=== PATIENT | male | born 1955 | race Caucasian/White ===

== ENCOUNTER 2016-11-01 14:01 | Inpatient (IN) | payer MEDICARE, MEDICAID ==
[2016-11-01] MEDS ORDERED: Albuterol/Ipratropium Neb 3 ML AERS HHN ONE ×2 (14:11→14:15)
--- NOTE | 2016-11-01 14:16 | ED Physician Chart ---
Chief Complaint/HPI - Patient Information Date Seen:: 11/01/16 Time Seen:: 14:11 Chief Complaint:: copd exacerbation History of Present Illness:: pt sent from [place] for chest tightness complaints. has hx of copd. seems to indicate that he has difficulty taking a deep breath...he is a difficult historian. he speaks legibly at some points but does a low of low mumbling which is difficult to decipher. he smokes about 6 cigs/day. says he has some chronic cough which is ?rarely prod of ? color sputum. he denies any leg pains or edema. no continuous cp. not currently sob. no arm/jaw apins. no edema. no known fever. he says he does not get any breathing txs at [place] .. Allergies:: Allergies Allergy/AdvReac Type Severity Reaction Status Date / Time No Known Allergies Allergy Verified 11/01/16 14:10 Historian:: Patient, EMS, Medical Records Review:: Transfer documents Reviewed Review of Systems - Review of Systems General/Constitutional: No fever, No chills, No weight loss, No weakness, No diaphoresis, No edema, No loss of appetite Skin: No skin lesions, No rash, No bruising Head: No headache, No light-headedness Eyes: No loss of vision, No pain, No diplopia ENT: No earache, No nasal drainage, No sore throat, No tinnitus Neck: No neck pain, No swelling, No thyromegaly, No stiffness, No mass noted Cardio Vascular: No chest pain, No palpitations, No PND, No orthopnea, No edema Pulmonary: SOB, Cough, Sputum, No wheezing GI: No nausea, No vomiting, No diarrhea, No pain, No melena, No hematochezia, No constipation, No hematemesis G/U: No dysuria, No frequency, No hematuria Musculoskeletal: No bone or joint pain, No back pain, No muscle pain Endocrine: No polyuria, No polydipsia Psychiatric: Prior psych history, No depression, No anxiety, No suicidal ideation Hematopoietic: No bruising, No lymphadenopathy Allergic/Immuno: No urticaria, No angioedema Neurological: No syncope, No focal symptoms, No weakness, No paresthesia, No headache, No seizure, No dizziness, No confusion, No vertigo Past Medical History - Past Medical History Past Medical History: Asthma/COPD Social History: Care Facility Psychiatricy History: Other Medication: Reviewed Family Medical History - Family Member Mother History Unknown: Yes Ethnicity: Unknown Living Status: Unknown Hx Family Cancer: (UNKNOWN) Hx Family Coronary Artery Disease: (UNKNOWN) Hx Family Congestive Heart Failure: (UNKNOWN) Hx Family Hypertension: (UNKNOWN) Hx Family Stroke: (UNKNOWN) Hx Family Diabetes: (UNKNOWN) Hx Family Seizures: (UNKNOWN) Hx Family Dementia: (UNKNOWN) Hx Family AIDS: (UNKNOWN) Hx Family COPD: (UNKNOWN) Hx Family Hepatitis: (UNKNOWN) Hx Family Psychiatric Problems: (UNKNOWN) Hx Family Tuberculosis: (UNKNOWN) Father History Unknown: Yes Ethnicity: Non- Living Status: Unknown Hx Family Cancer: (UNKNOWN PT CONFUSED) Hx Family Coronary Artery Disease: (UNKNOWN) Hx Family Congestive Heart Failure: (UNKNOWN) Hx Family Hypertension: (UNKNOWN) Hx Family Stroke: (UNKNOWN) Hx Family Diabetes: (UNKNOWN) Hx Family Seizures: (UNKNOWN) Hx Family Dementia: (UNKNOWN) Hx Family AIDS: (UNKNOWN) Hx Family COPD: (UNKNOWN) Hx Family Hepatitis: (UNKNOWN) Hx Family Psychiatric Problems: (UNKNOWN) Hx Family Tuberculosis: (UNKNOWN) Physical Exam - Physical Examination General/Constitutional: Awake, Well-developed, well-nourished, Alert, No distress, GCS 15, Non-toxic appearing, Ambulatory Other Gen/Cons comments:: thin male in nad. difficult to hear low volume mumbling speech at times. he does not seem winded w speaking. no leg edema. no denisse sx. Head: Atraumatic Eyes: Lids, conjuctiva normal, PERRL, EOMI Skin: Nl inspection, No rash, No skin lesions, No ecchymosis, Well hydrated, No lymphadenopathy ENMT: External ears, nose nl, Nasal exam nl, Lips, teeth, gums nl Neck: Nontender, Full ROM w/o pain, No JVD, No nuchal rigidity, No bruit, No mass, No stridor Respiratory: Nl effort/Exclusion, Clear to Auscultation Other Respiratory comments:: some rales at rt lung base posteriorly Cardio Vascular: RRR, No murmur, gallop, rubs, NL S1 S2 GI: No tenderness/rebounding/guarding, No organomegaly, No hernia, Normal BS's, Nondistended, No mass/bruits, No McBurney tenderness : No CVA tenderness Extremities: No tenderness or effusion, Full ROM, normal strength in all extremities, No edema, Normal digits & nails Neuro/Psych: Alert/oriented, DTR's symmetric, Normal sensory exam, Normal motor strength, Judgement/insight normal, Mood normal, Normal gait, No focal deficits Misc: normal gait, Normal back, No paraspinal tenderness Labs/Radiology/EKG Results - Lab Results Results: Laboratory Tests 11/01/16 11/01/16 11/01/16 14:40 14:40 14:40 WBC 9.9 D RBC 5.05 Hgb 16.0 Hct 45.7 MCV 90.4 MCH 31.6 H MCHC Differential 35.0 RDW 12.0 Plt Count 208 MPV 8.5 Neutrophils % 68.9 Lymphocytes % 23.8 Monocytes % 3.4 Eosinophils % 3.0 Basophils % 0.9 Sodium 138 Potassium 3.5 Chloride 107 Carbon Dioxide 25.7 Anion Gap 8.8 BUN 21 Creatinine 0.8 Est GFR ( Amer) > 60.0 Est GFR (Non-Af Amer) > 60.0 BUN/Creatinine Ratio 26.3 Glucose 126 H Whole Bld Lactic Acid Calcium 9.6 Total Bilirubin 0.3 AST 17 ALT 16 Alkaline Phosphatase 70 Troponin I 0.01 B-Natriuretic Peptide < 5.0 L Total Protein 6.8 Albumin 4.0 L Globulin 2.8 Albumin/Globulin Ratio 1.4 11/01/16 14:40 WBC RBC Hgb Hct MCV MCH MCHC Differential RDW Plt Count MPV Neutrophils % Lymphocytes % Monocytes % Eosinophils % Basophils % Sodium Potassium Chloride Carbon Dioxide Anion Gap BUN Creatinine Est GFR ( Amer) Est GFR (Non-Af Amer) BUN/Creatinine Ratio Glucose Whole Bld Lactic Acid 1.04 Calcium Total Bilirubin AST ALT Alkaline Phosphatase Troponin I B-Natriuretic Peptide Total Protein Albumin Globulin Albumin/Globulin Ratio - Radiology Results Results: cxr nad - EKG Interpretations EKG Time:: 14:15 Rate & Rhythm: nsr 86 [place]: 34 Intervals: nrml Comments:: overall wnl ecg. no ectopy. low voltage in III ED Septic Shock - . Is Septic Shock (SBP<90, OR Lactate>4 mmol\L) present?: No Reassessment (Disposition) - Reassessment Reassessment:: case dw dr florentino will admit for copd exacerbation. sao2 improved from 94-97 w yasmeen tx. pt alert and talking to self..sometimes w violent convictions but overall seems alert/stable..no shahida conflicts w staff in ed. Reassessment Condition:: Improved - Diagnosis Diagnosis:: copd exacerbation - Patient Disposition Admitted to:: Med/Surg Condition at Disposition:: Improved
[2016-11-01 14:57] LABS: % BASOPHILS 0.9 % (0.0-2.0); % LYMPHOCYTES 23.8 % (20.0-50.0); % MONOCYTES 3.4 % (2.0-10.0); % NEUTROPHILS 68.9 % (40.0-80.0); HEMATOCRIT 45.7 % (39.0-49.0); MEAN CELL VOLUME 90.4 fl (80-99); MEAN CORPUSCULAR HEMOGLOBIN 31.6 pg (26.0-30.0); MEAN PLATELET VOLUME 8.5 fl; NEUTROPHILE ABSOLUTE 6.8 Th/cmm (1.8-8.0); PLATELET COUNT 208 Th/cmm (150-400); RED BLOOD COUNT 5.05 Mil/cmm (4.30-5.70)
[2016-11-01 15:04] LABS: WHITE BLOOD COUNT 9.9 Th/cmm (4.8-10.8)
[2016-11-01 15:21] LABS: ALB/GLOB RATIO 1.4 (1.0-1.8); ALKALINE PHOSPHATASE 70 U/L (34-104); ANION GAP 8.8 (7.0-16.0); BILIRUBIN,TOTAL 0.3 mg/dL (0.3-1.0); BNP < 5.0 pg/mL (5.0-100.0); BUN - UREA NITROGEN 21 mg/dL (7-25); BUN/CREATININE RATIO 26.3; CALCIUM SERUM 9.6 mg/dL (8.6-10.3); CARBON DIOXIDE 25.7 mEq/L (21.0-31.0); CHLORIDE 107 mEq/L (98-107); CREATININE - SERUM 0.8 mg/dL (0.7-1.3); GLUCOSE 126 mg/dL (70-105); POTASSIUM SERUM 3.5 mEq/L (3.5-5.1); SGOT 17 U/L (13-39); SGPT/ALT 16 U/L (7-52); SODIUM SERUM 138 mEq/L (136-145)
[2016-11-01 15:24] LABS: TROP I 0.01 ng/mL (0.01-0.05)
[2016-11-01 16:36] VITALS: BP 125/85
[2016-11-01] MEDS ORDERED: Pneumococcal Vaccine 0.5 mL Vial IM ONE (19:42)
--- NOTE | 2016-11-01 21:52 | Admit Criteria Form ---
Admit Criteria Forms - Admit Criteria Diagnosis: COPD Clinical Indications for Admission to Inpatient Care (Place 'X' for any and all applicable criteria): Admission is indicated for ANY ONE of the following (1)(2)(3): [X]I. Acute exacerbation by high-risk comorbidity (e.g., pneumonia, dysrhythmia, heart failure, pleural effusion, pneumothorax) or severe underlying COPD (e.g., steroid dependent) [ ]II. Inpatient admission required rather than observation care (see Chronic Obstructive Pulmonary Disease: Observation Care) because of ANY ONE of the following: [ ]a) New or pre-existing signs or symptoms of COPD (eg, dyspnea or Tachypnea at rest or with minimal activity) that persist despite outpatient and observation care treatment [ ]b) New-onset hypoxemia (room air SaO2 less than 90%, PO2 less than 60 mm Hg (8.0 kPa)) that persists despite outpatient and observation care treatment [ ]c) Worsening of pre-existing hypoxemia (eg, new or increased requirement for supplemental oxygen to maintain oxygenation at baseline level) that persists despite outpatient and observation care treatment, with oxygen treatment needs performable only in acute inpatient setting [ ]d) Hypercarbia (PCO2 greater than 40 mm Hg (5.3 kPa))-induced respiratory acidosis (pH less than 7.35) that persists despite outpatient and observation care treatment [ ]e) Supplemental oxygen or respiratory treatments for over 24 hours that are performable only in acute inpatient setting [ ]f) Chest tube placement with active evacuation (e.g., suction, drainage) (5) [ ]g) Other condition, treatment or monitoring requiring inpatient admission [ ]III. Planned invasive surgical or diagnostic procedures requiring acute- care hospitalization [ ]IV. Acute respiratory failure (e.g., uncompensated hypercarbia, severe hypoxemia) [ ]V. Severe comorbid condition (e.g., severe steroid myopathy, acute vertebral fracture) that has acutely worsened pulmonary function [ ]. Confusion state, lethargy, obtundation, stupor or coma Extended stay beyond goal length of stay may be needed for (31)(32): [ ]a ) Respiratory Failure. [ ]b) Severe or persisting hypoxemia or hypercarbia [ ]c) Severe or persistent dyspnea [ ]d) Comorbidities (e.g. chronic heart failure, atrial fibrillation with rapid response, pneumonia) [ ]e) Malnutrition The original [facility] content created by [facility] has been revised. The portions of the content which have been revised are identified through the use of italic text or in bold, and [facility] has neither reviewed nor approved the modified material. All other unmodified content is copyright [facility]. Please see references footnoted in the original [facility] edition 2016 Admit Criteria Met?: Yes
[2016-11-01] MEDS ORDERED: Maalox 30 mL Cup PO PRN ×2 (22:28→22:29)
[2016-11-01] MEDS ORDERED: Magnesium Hydroxide (MOM) 30 mL UDC PO PRN (22:28)
[2016-11-01] MEDS ORDERED: guaiFENesin 200 MG/10 ML UDC PO PRN (22:29)
[2016-11-01] MEDS ORDERED: Hydrocodone/APAP 5mg/325mg Tab PO PRN (22:29)
[2016-11-01] MEDS: D5-0.45NS 1,000 ML IV SCH (23:13)
[2016-11-01] MEDS: Levofloxacin 500mg/100mL 500 MG/100 ML BAG IV SCH (23:19)
[2016-11-02] MEDS: methylPREDNISolone SS 40 mg Vial IVP SCH ×3 (06:07→23:05)
[2016-11-02] MEDS: Albuterol Nebulizer 2.5mg/3mL HHN SCH ×4 (09:16→19:28)
[2016-11-02] MEDS: Ipratropium Neb 0.5 mg/2.5 mL UD HHN SCH ×4 (09:16→19:28)
[2016-11-02] MEDS: Multivitamin Tab PO SCH (09:46)
--- NOTE | 2016-11-02 10:58 | Diagnostic Imaging Report ---
Portable chest x-ray History: Shortness of breath Allowing for portable technique the heart size is normal. No focal pulmonary parenchymal processes. No hilar or mediastinal abnormalities. Impression: No acute abnormalities.
[2016-11-02] MEDS: D5-0.45NS 1,000 ML IV SCH (14:22)
[2016-11-02] MEDS: Levofloxacin 500mg/100mL 500 MG/100 ML BAG IV SCH (23:07)
[2016-11-03] MEDS: Ipratropium Neb 0.5 mg/2.5 mL UD HHN SCH ×4 (06:50→18:54)
[2016-11-03] MEDS: Albuterol Nebulizer 2.5mg/3mL HHN SCH ×4 (06:50→18:53)
[2016-11-03] MEDS: D5-0.45NS 1,000 ML IV SCH ×2 (07:28→08:55)
[2016-11-03] MEDS: methylPREDNISolone SS 40 mg Vial IVP SCH ×3 (07:36→22:50)
[2016-11-03] MEDS: Multivitamin Tab PO SCH (08:52)
--- NOTE | 2016-11-03 09:52 | Diagnostic Imaging Report ---
CHEST X-RAY: AP view INDICATION: COPD COMPARISON: Chest x-ray 11/01/2016 FINDINGS: Suboptimal lung volumes are seen with bronchovascular crowding and bibasal atelectasis. No focal consolidation or effusions. Heart size is normal. Osseous structures are intact. IMPRESSION: Suboptimal lung volume with bronchovascular crowding and bibasal atelectasis. No focal consolidation identified.
--- NOTE | 2016-11-03 09:55 | History & Physical ---
ADMIT DATE: 11/02/2016 CHIEF COMPLAINT: Increasing shortness of breath and coughing. HISTORY OF PRESENT ILLNESS: This is a 61-year-old male with history of COPD, dementia, schizoaffective disorder, hypercholesterolemia, was admitted from nursing facility secondary to above complaints. The patient was brought into the ER and noted to have abnormal EKG as well. The patient was admitted for further management. PAST MEDICAL HISTORY: As mentioned in history of present illness. PAST SURGICAL HISTORY: Denies any surgeries in the past. ALLERGIES: No known drug allergies. MEDICATIONS: Tylenol, multivitamins, ____, Zyprexa, simvastatin, ____. FAMILY HISTORY: Noncontributory. SOCIAL HISTORY: The patient is an avid smoker. ____. The patient is in a nursing facility ____. REVIEW OF SYSTEMS: GENERAL: Complains not feeling well. HEENT: No blurred vision or pain. LUNGS: The patient with diagnosed COPD. The patient is a chronic smoker. HEART: ____. ABDOMEN: No nausea, vomiting, or pain. GENITOURINARY: The patient denies increased frequency or dysuria. NEUROLOGIC: No headache, seizure, or syncope. PSYCHIATRIC: Stable. PHYSICAL EXAMINATION: VITAL SIGNS: Blood pressure 104/66, respirations 18, pulse ____. GENERAL: Elderly male, appears stated age. NECK: Supple. No mass. LUNGS: ____. HEART: Regular rate and rhythm without appreciable murmurs. ABDOMEN: Soft, nontender. EXTREMITIES: No clubbing, cyanosis or edema, with positive excoriation in the right lower extremity. LABORATORY DATA: WBC 9.9, hemoglobin 16, platelets 208. Sodium ____ blood sugar 126. Albumin 4.0. ASSESSMENT AND PLAN: Acute chronic obstructive pulmonary disease exacerbation, acute bronchitis, dementia, hyperglycemia, hypercholesterolemia, schizoaffective disorder. We will continue the patient ____ steroids. We will review the patient's ____. We will continue to follow the patient closely. JOB# [id number]
--- NOTE | 2016-11-03 15:26 | Internal Medicine Prog Note ---
Internal Medicine Subjective - Subjective Patient seen and examined:: with staff, chart reviewed Patient is:: awake, verbal, interactive Patient Complaints of:: congestion Per staff patient is:: no adverse event, no episodes of fall, poor appetite, confused Internal Medicine Objective - Results Result Diagrams: 11/01/16 14:40 11/01/16 14:40 Recent Labs: Laboratory Last Values WBC 9.9 Th/cmm (4.8-10.8) D 11/01/16 14:40 RBC 5.05 Mil/cmm (4.30-5.70) 11/01/16 14:40 Hgb 16.0 gm/dL (13.2-17.3) 11/01/16 14:40 Hct 45.7 % (39.0-49.0) 11/01/16 14:40 MCV 90.4 fl (80-99) 11/01/16 14:40 MCH 31.6 pg (26.0-30.0) H 11/01/16 14:40 MCHC Differential 35.0 pg (28.0-36.0) 11/01/16 14:40 RDW 12.0 % (11.5-20.0) 11/01/16 14:40 Plt Count 208 Th/cmm (150-400) 11/01/16 14:40 MPV 8.5 fl 11/01/16 14:40 Neutrophils % 68.9 % (40.0-80.0) 11/01/16 14:40 Lymphocytes % 23.8 % (20.0-50.0) 11/01/16 14:40 Monocytes % 3.4 % (2.0-10.0) 11/01/16 14:40 Eosinophils % 3.0 % (0.0-5.0) 11/01/16 14:40 Basophils % 0.9 % (0.0-2.0) 11/01/16 14:40 Sodium 138 mEq/L (136-145) 11/01/16 14:40 Potassium 3.5 mEq/L (3.5-5.1) 11/01/16 14:40 Chloride 107 mEq/L (98-107) 11/01/16 14:40 Carbon Dioxide 25.7 mEq/L (21.0-31.0) 11/01/16 14:40 Anion Gap 8.8 (7.0-16.0) 11/01/16 14:40 BUN 21 mg/dL (7-25) 11/01/16 14:40 Creatinine 0.8 mg/dL (0.7-1.3) 11/01/16 14:40 Est GFR ( Amer) > 60.0 ml/min (>90) 11/01/16 14:40 Est GFR (Non-Af Amer) > 60.0 ml/min 11/01/16 14:40 BUN/Creatinine Ratio 26.3 11/01/16 14:40 Glucose 126 mg/dL (70-105) H 11/01/16 14:40 Whole Bld Lactic Acid 1.04 mmol/L (0.60-1.99) 11/01/16 14:40 Calcium 9.6 mg/dL (8.6-10.3) 11/01/16 14:40 Total Bilirubin 0.3 mg/dL (0.3-1.0) 11/01/16 14:40 AST 17 U/L (13-39) 11/01/16 14:40 ALT 16 U/L (7-52) 11/01/16 14:40 Alkaline Phosphatase 70 U/L (34-104) 11/01/16 14:40 Troponin I 0.01 ng/mL (0.01-0.05) 11/01/16 14:40 B-Natriuretic Peptide < 5.0 pg/mL (5.0-100.0) L 11/01/16 14:40 Total Protein 6.8 gm/dL (6.0-8.3) 11/01/16 14:40 Albumin 4.0 gm/dL (4.2-5.5) L 11/01/16 14:40 Globulin 2.8 gm/dL 11/01/16 14:40 Albumin/Globulin Ratio 1.4 (1.0-1.8) 11/01/16 14:40 - Physical Exam Vitals and I&O: Vital Signs Temp 98.2 F 11/03/16 04:00 Pulse 92 11/03/16 10:52 Resp 18 11/03/16 10:52 BP 125/80 11/03/16 04:00 Pulse Ox 96 11/03/16 10:52 Intake & Output 11/02/16 11/03/16 11/03/16 18:59 06:59 18:59 Intake Total 1000 1150 Balance 1000 1150 Intake: Intake, IV Amount 1000 1000 D5-0.45NS 1,000 ml @ 70 1000 1000 mls/hr IV .[id number] [facility] Rx #:[id number] Oral 150 Other: # Voids 2 # Bowel Movements 0 Active Medications: Current Medications Acetaminophen (Tylenol) 650 mg PO Q4HR PRN PRN Reason: PAIN OR TEMP >100.5 Stop: 12/31/16 22:27 Acetaminophen/Hydrocodone Bitart ([place] 5mg/325mg) 1 tab PO Q4H PRN PRN Reason: Pain (Severe) Stop: 12/31/16 22:28 Al Hydrox/Mg Hydrox/Simethicone (Maalox) 30 ml PO Q4H PRN PRN Reason: GI DISTRESS Stop: 12/31/16 22:27 Albuterol Sulfate (Albuterol 2.5mg/3ml Neb Ud) 2.5 mg HHN QIDRT [facility] Stop: 01/01/17 06:59 Last Admin: 11/03/16 10:52 Dose: Not Given Buspirone HCl (Buspar) 7.5 mg PO BID [facility] PRN Reason: Protocol Stop: 01/01/17 08:59 Last Admin: 11/03/16 08:52 Dose: 7.5 mg Guaifenesin (Robitussin) 200 mg PO Q4HR PRN PRN Reason: Cough or Congestion Stop: 12/31/16 22:28 Heparin Sodium (Porcine) (Heparin) 5,000 units SUBQ Q12HR [facility] Stop: 01/01/17 08:59 Last Admin: 11/03/16 08:52 Dose: 5,000 units Hydroxyzine HCl (Atarax) 25 mg PO QID PRN; Protocol PRN Reason: itching Stop: 12/31/16 22:27 Dextrose/Sodium Chloride (D5-0.45ns) 1,000 mls @ 70 mls/hr IV .[id number] [facility] Stop: 12/31/16 22:29 Last Admin: 11/03/16 08:55 Dose: 70 mls/hr Levofloxacin (Levaquin Pb) 500 mg in 100 mls @ 100 mls/hr IV Q24HR [facility] Stop: 12/31/16 22:29 Last Admin: 11/02/16 23:07 Dose: 100 mls/hr Ipratropium [place] (Atrovent Neb 0.5mg/2.5ml) 0.5 mg HHN QIDRT [facility] Stop: 01/01/17 06:59 Last Admin: 11/03/16 10:52 Dose: Not Given Magnesium Hydroxide (Milk Of Magnesia) 30 ml PO HS PRN PRN Reason: Constipation Stop: 12/31/16 22:27 Methylprednisolone Sodium Succinate (Solu-Medrol) 80 mg IVP Q8HR [facility] Stop: 01/01/17 04:59 Last Admin: 11/03/16 14:28 Dose: 80 mg Multivitamins/Vitamin C (Theragran) 1 tab PO DAILY G[facility] Stop: 01/01/17 08:59 Last Admin: 11/03/16 08:52 Dose: 1 tab Olanzapine (Zyprexa) 5 mg PO TID [facility] PRN Reason: Protocol Stop: 01/01/17 08:59 Last Admin: 11/03/16 14:28 Dose: 5 mg Ondansetron HCl (Zofran) 4 mg IV Q8H PRN PRN Reason: Nausea / Vomiting Stop: 12/31/16 22:28 Simvastatin (Zocor) 10 mg PO HS G[facility] PRN Reason: Protocol Stop: 01/01/17 20:59 Last Admin: 11/02/16 23:06 Dose: 10 mg Zolpidem Tartrate (Ambien) 5 mg PO HS PRN PRN Reason: Insomnia Stop: 12/31/16 22:27 Last Admin: 11/02/16 23:06 Dose: 5 mg General: demented HEENT: NC/AT, PERRLA Neck: Supple, No JVD Lungs: congested, rales Cardiovascular: RRR, Normal S1, Normal S2 Abdomen: soft non-tender, globular Extremities: excoriation, contracture Neurological: no change - Procedures Procedures: Procedures Procedure Code Date OTHER GROUP THERAPY 94.44 03/09/15 RECREATIONAL THERAPY 93.81 03/19/12 Internal Medicine Assmt/Plan - Assessment Assessment: Acute chronic obstructive pulmonary disease exacerbation, acute bronchitis, dementia, hyperglycemia, hypercholesterolemia, schizoaffective disorder. - Plan Plan: cont on iv abx o2 bronchodilator psych follow up khushi vasquez
[2016-11-03] MEDS: Levofloxacin 500mg/100mL 500 MG/100 ML BAG IV SCH (23:06)
[2016-11-04] MEDS: D5-0.45NS 1,000 ML IV SCH ×2 (06:04→20:57)
[2016-11-04] MEDS ORDERED: methylPREDNISolone SS 40 mg Vial ONE (06:16)
[2016-11-04] MEDS: methylPREDNISolone SS 40 mg Vial IVP SCH ×2 (06:28→20:56)
[2016-11-04] MEDS: Ipratropium Neb 0.5 mg/2.5 mL UD HHN SCH ×4 (06:47→18:45)
[2016-11-04] MEDS: Albuterol Nebulizer 2.5mg/3mL HHN SCH ×4 (06:47→18:45)
[2016-11-04 07:28] LABS: ANION GAP 11.3 (7.0-16.0); BUN - UREA NITROGEN 20 mg/dL (7-25); BUN/CREATININE RATIO 28.6; CALCIUM SERUM 9.4 mg/dL (8.6-10.3); CARBON DIOXIDE 22.5 mEq/L (21.0-31.0); CHLORIDE 110 mEq/L (98-107); CREATININE - SERUM 0.7 mg/dL (0.7-1.3); GLUCOSE 121 mg/dL (70-105); POTASSIUM SERUM 3.8 mEq/L (3.5-5.1); SODIUM SERUM 140 mEq/L (136-145)
[2016-11-04 07:33] LABS: HEMATOCRIT 44.1 % (39.0-49.0); HEMOGLOBIN 15.1 gm/dL (13.2-17.3); MEAN CELL VOLUME 92.6 fl (80-99); MEAN CORPUSCULAR HEMOGLOBIN 31.8 pg (26.0-30.0); MEAN CORPUSCULAR HGB CONC 34.3 pg (28.0-36.0); MEAN PLATELET VOLUME 8.8 fl; PLATELET COUNT 222 Th/cmm (150-400); RED BLOOD COUNT 4.76 Mil/cmm (4.30-5.70); RED CELL DISTRIBUTION WIDTH 12.2 % (11.5-20.0)
[2016-11-04 07:41] LABS: WHITE BLOOD COUNT 19.9 Th/cmm (4.8-10.8)
[2016-11-04 08:44] LABS: BAND NEUTROPHILE 1 % (0-10); NEUTROPHILS 97 % (40-80); PLATELET ESTIMATE ADEQUATE (NORMAL); TOTAL CELLS COUNTED 100
--- NOTE | 2016-11-04 09:34 | Consultation ---
DATE OF CONSULTATION: 11/03/2016 PSYCHIATRIC CONSULTATION: The patient was seen, chart reviewed, and discussed with staff. HISTORY OF PRESENT ILLNESS: The patient is a 61-year-old male with chronic history of schizophrenia, known to myself from prior treatment. He has been somewhat restless at times, pacing on medical floor. The patient is talking to himself; however, he has not been aggressive or striking out. The patient has been taking his medications and passively accepting treatments. PAST PSYCHIATRIC HISTORY: Multiple psychiatric hospitalizations, history of chronic mental illness. PAST MEDICAL HISTORY: COPD and acute bronchitis. Refer to [facility] and P. PSYCHOSOCIAL HISTORY: The patient resides at [facility] and requires complete care. MENTAL STATUS EXAMINATION: The patient is slightly disheveled, makes fair eye contact. He was superficial, smiling. The patient is responding to internal stimuli, actively hallucinating. He is oriented to person and being in the hospital. Not oriented to time, no suicidal thoughts. ASSESSMENT: Schizophrenia versus schizoaffective disorder. PLAN: We will continue BuSpar 7.5 mg p.o. b.i.d., olanzapine 5 mg p.o. t.i.d., use Ativan 0.5 mg p.o. q.4 hours p.r.n. anxiety. Consider psychiatric hospitalization once medically stable given the patient has been hallucinating and to monitor closely for the time being. Thank you for the consultation. JOB# [id number]
[2016-11-04] MEDS: Multivitamin Tab PO SCH (10:03)
--- NOTE | 2016-11-04 13:18 | Internal Medicine Prog Note ---
Internal Medicine Subjective - Subjective Patient seen and examined:: with staff, chart reviewed Patient is:: awake, verbal, interactive Patient Complaints of:: congestion Per staff patient is:: no adverse event, no episodes of fall, confused Internal Medicine Objective - Results Result Diagrams: 11/04/16 06:00 11/04/16 06:00 Recent Labs: Laboratory Last Values WBC 19.9 Th/cmm (4.8-10.8) H D 11/04/16 06:00 RBC 4.76 Mil/cmm (4.30-5.70) 11/04/16 06:00 Hgb 15.1 gm/dL (13.2-17.3) 11/04/16 06:00 Hct 44.1 % (39.0-49.0) 11/04/16 06:00 MCV 92.6 fl (80-99) 11/04/16 06:00 MCH 31.8 pg (26.0-30.0) H 11/04/16 06:00 MCHC Differential 34.3 pg (28.0-36.0) 11/04/16 06:00 RDW 12.2 % (11.5-20.0) 11/04/16 06:00 Plt Count 222 Th/cmm (150-400) 11/04/16 06:00 MPV 8.8 fl 11/04/16 06:00 Neutrophils % 68.9 % (40.0-80.0) 11/01/16 14:40 Band Neutrophils % 1 % (0-10) 11/04/16 06:00 Lymphocytes % 23.8 % (20.0-50.0) 11/01/16 14:40 Monocytes % 3.4 % (2.0-10.0) 11/01/16 14:40 Eosinophils % 3.0 % (0.0-5.0) 11/01/16 14:40 Basophils % 0.9 % (0.0-2.0) 11/01/16 14:40 Neutrophils (Manual) 97 % (40-80) H 11/04/16 06:00 Lymphocytes 2 % (20-50) L 11/04/16 06:00 Platelet Estimate ADEQUATE (NORMAL) 11/04/16 06:00 Sodium 140 mEq/L (136-145) 11/04/16 06:00 Potassium 3.8 mEq/L (3.5-5.1) 11/04/16 06:00 Chloride 110 mEq/L (98-107) H 11/04/16 06:00 Carbon Dioxide 22.5 mEq/L (21.0-31.0) 11/04/16 06:00 Anion Gap 11.3 (7.0-16.0) 11/04/16 06:00 BUN 20 mg/dL (7-25) 11/04/16 06:00 Creatinine 0.7 mg/dL (0.7-1.3) 11/04/16 06:00 Est GFR ( Amer) > 60.0 ml/min (>90) 11/04/16 06:00 Est GFR (Non-Af Amer) > 60.0 ml/min 11/04/16 06:00 BUN/Creatinine Ratio 28.6 11/04/16 06:00 Glucose 121 mg/dL (70-105) H 11/04/16 06:00 Whole Bld Lactic Acid 1.04 mmol/L (0.60-1.99) 11/01/16 14:40 Calcium 9.4 mg/dL (8.6-10.3) 11/04/16 06:00 Total Bilirubin 0.3 mg/dL (0.3-1.0) 11/01/16 14:40 AST 17 U/L (13-39) 11/01/16 14:40 ALT 16 U/L (7-52) 11/01/16 14:40 Alkaline Phosphatase 70 U/L (34-104) 11/01/16 14:40 Troponin I 0.01 ng/mL (0.01-0.05) 11/01/16 14:40 B-Natriuretic Peptide < 5.0 pg/mL (5.0-100.0) L 11/01/16 14:40 Total Protein 6.8 gm/dL (6.0-8.3) 11/01/16 14:40 Albumin 4.0 gm/dL (4.2-5.5) L 11/01/16 14:40 Globulin 2.8 gm/dL 11/01/16 14:40 Albumin/Globulin Ratio 1.4 (1.0-1.8) 11/01/16 14:40 - Physical Exam Vitals and I&O: Vital Signs Temp 97.8 F 11/04/16 11:32 Pulse 103 11/04/16 11:32 Resp 19 11/04/16 11:32 BP 100/67 11/04/16 11:32 Pulse Ox 98 11/04/16 11:32 Intake & Output 11/03/16 11/04/16 11/04/16 18:59 06:59 18:59 Intake Total 571.667 428.333 Balance 571.667 428.333 Intake: Intake, IV Amount 571.667 428.333 D5-0.45NS 1,000 ml @ 70 571.667 428.333 mls/hr IV .[id number] [facility] Rx #:[id number] Active Medications: Current Medications Acetaminophen (Tylenol) 650 mg PO Q4HR PRN PRN Reason: PAIN OR TEMP >100.5 Stop: 12/31/16 22:27 Acetaminophen/Hydrocodone Bitart ([place] 5mg/325mg) 1 tab PO Q4H PRN PRN Reason: Pain (Severe) Stop: 12/31/16 22:28 Al Hydrox/Mg Hydrox/Simethicone (Maalox) 30 ml PO Q4H PRN PRN Reason: GI DISTRESS Stop: 12/31/16 22:27 Albuterol Sulfate (Albuterol 2.5mg/3ml Neb Ud) 2.5 mg HHN QIDRT [facility] Stop: 01/01/17 06:59 Last Admin: 11/04/16 10:35 Dose: 2.5 mg Buspirone HCl (Buspar) 7.5 mg PO BID [facility] PRN Reason: Protocol Stop: 01/01/17 08:59 Last Admin: 11/04/16 10:02 Dose: 7.5 mg Guaifenesin (Robitussin) 200 mg PO Q4HR PRN PRN Reason: Cough or Congestion Stop: 12/31/16 22:28 Heparin Sodium (Porcine) (Heparin) 5,000 units SUBQ Q12HR [facility] Stop: 01/01/17 08:59 Last Admin: 11/04/16 10:04 Dose: 5,000 units Hydroxyzine HCl (Atarax) 25 mg PO QID PRN; Protocol PRN Reason: itching Stop: 12/31/16 22:27 Dextrose/Sodium Chloride (D5-0.45ns) 1,000 mls @ 70 mls/hr IV .[id number] [facility] Stop: 12/31/16 22:29 Last Admin: 11/04/16 06:04 Dose: 70 mls/hr Levofloxacin (Levaquin Pb) 500 mg in 100 mls @ 100 mls/hr IV Q24HR [facility] Stop: 12/31/16 22:29 Last Admin: 11/03/16 23:06 Dose: 100 mls/hr Ipratropium [place] (Atrovent Neb 0.5mg/2.5ml) 0.5 mg HHN QIDRT [facility] Stop: 01/01/17 06:59 Last Admin: 11/04/16 10:35 Dose: 0.5 mg Lorazepam (Ativan) 0.5 mg PO Q4HR PRN; Protocol PRN Reason: Anxiety Stop: 01/02/17 18:21 Magnesium Hydroxide (Milk Of Magnesia) 30 ml PO HS PRN PRN Reason: Constipation Stop: 12/31/16 22:27 Methylprednisolone Sodium Succinate (Solu-Medrol) 80 mg IVP Q8HR [facility] Stop: 01/01/17 04:59 Last Admin: 11/04/16 06:28 Dose: 80 mg Multivitamins/Vitamin C (Theragran) 1 tab PO DAILY [facility] Stop: 01/01/17 08:59 Last Admin: 11/04/16 10:03 Dose: 1 tab Olanzapine (Zyprexa) 5 mg PO TID [facility] PRN Reason: Protocol Stop: 01/01/17 08:59 Last Admin: 11/04/16 10:03 Dose: 5 mg Ondansetron HCl (Zofran) 4 mg IV Q8H PRN PRN Reason: Nausea / Vomiting Stop: 12/31/16 22:28 Simvastatin (Zocor) 10 mg PO HS [facility] PRN Reason: Protocol Stop: 01/01/17 20:59 Last Admin: 11/03/16 21:52 Dose: 10 mg Zolpidem Tartrate (Ambien) 5 mg PO HS PRN PRN Reason: Insomnia Stop: 12/31/16 22:27 Last Admin: 11/03/16 21:52 Dose: 5 mg General: demented HEENT: NC/AT, PERRLA Neck: Supple, No JVD Lungs: congested, rales, ronchi Cardiovascular: RRR, Normal S1, Normal S2 Abdomen: soft non-tender, globular, positive bowel sound Extremities: excoriation Neurological: no change, disorganized - Procedures Procedures: Procedures Procedure Code Date OTHER GROUP THERAPY 94.44 03/09/15 RECREATIONAL THERAPY 93.81 03/19/12 Internal Medicine Assmt/Plan - Assessment Assessment: Acute chronic obstructive pulmonary disease exacerbation, acute bronchitis, dementia, hyperglycemia, hypercholesterolemia, schizoaffective disorder. leulocytosis - Plan Plan: cont on iv abx o2 bronchodilator psych follow up dw rn monitor wbc
[2016-11-04] MEDS: Levofloxacin 500mg/100mL 500 MG/100 ML BAG IV SCH (23:07)
[2016-11-05 06:12] LABS: % BASOPHILS 0.1 % (0.0-2.0); % EOSINOPHILS 0.1 % (0.0-5.0); % LYMPHOCYTES 9.5 % (20.0-50.0); % MONOCYTES 1.9 % (2.0-10.0); % NEUTROPHILS 88.4 % (40.0-80.0); HEMOGLOBIN 14.1 gm/dL (13.2-17.3); MEAN CELL VOLUME 91.5 fl (80-99); MEAN CORPUSCULAR HEMOGLOBIN 31.6 pg (26.0-30.0); MEAN CORPUSCULAR HGB CONC 34.5 pg (28.0-36.0); MEAN PLATELET VOLUME 8.6 fl; NEUTROPHILE ABSOLUTE 10.8 Th/cmm (1.8-8.0); PLATELET COUNT 196 Th/cmm (150-400); RED BLOOD COUNT 4.48 Mil/cmm (4.30-5.70); RED CELL DISTRIBUTION WIDTH 12.3 % (11.5-20.0)
[2016-11-05 06:24] LABS: WHITE BLOOD COUNT 12.2 Th/cmm (4.8-10.8)
[2016-11-05] MEDS: Albuterol Nebulizer 2.5mg/3mL HHN SCH ×3 (06:50→14:45)
[2016-11-05] MEDS: Ipratropium Neb 0.5 mg/2.5 mL UD HHN SCH ×3 (06:50→14:45)
[2016-11-05] MEDS: Multivitamin Tab PO SCH (08:38)
[2016-11-05] MEDS: methylPREDNISolone SS 40 mg Vial IVP SCH (08:38)
[2016-11-05] MEDS: D5-0.45NS 1,000 ML IV SCH (13:36)
--- NOTE | 2016-11-06 00:13 | Discharge Summary ---
DATE OF DISCHARGE: 11/05/2016 CHIEF COMPLAINT: Increasing shortness of breath and coughing. FINAL DIAGNOSES: 1. Acute chronic obstructive pulmonary disease exacerbation. 2. Leukocytosis, which is improving. 3. Acute bronchitis. 4. Dementia. 5. Hyperglycemia. 6. Hypercholesterolemia. 7. Schizoaffective disorder. HISTORY OF PRESENT ILLNESS: This is a 61-year-old male with history of COPD, dementia, schizoaffective disorder, hypercholesterolemia, was admitted from nursing facility secondary to above complaints. The patient was admitted for COPD exacerbation. PHYSICAL EXAMINATION: VITAL SIGNS: Blood pressure ____, respirations 20, pulse 79, temperature 98.7. GENERAL: Elderly male, who appears his stated age. NECK: Supple. No mass. LUNGS: Equal breath sounds with few rhonchi. HEART: Regular rate and rhythm without appreciable murmurs. ABDOMEN: Soft, nontender. EXTREMITIES: Positive excoriations. HOSPITAL COURSE: The patient was admitted to medical floor, continued on IV hydration and IV antibiotic, given IV Solu-Medrol. The patient was seen by Dr. Martinez for adjustment of psychotropic medications. The patient's white count increased to 19,000 and steroids were adjusted and this improved to 12.2. The patient cleared for discharge. CONDITION ON DISCHARGE: Fair. DISCHARGE INSTRUCTIONS: The patient is to continue current medical regimen. The patient ____ antibiotics and steroids. [facility]# [id number]
== END 2016-11-05 18:45 | DRG 872 ==
LOC: ER 14:01 → MSI 16:39
PROVIDERS: ADMIT Internal Medicine; ATTEND Internal Medicine
DX: A41.9 Sepsis, unspecified organism (principal); J44.0 Chronic obstructive pulmonary disease with (acute) lower respiratory infection; F03.90 Unspecified dementia, unspecified severity, without behavioral disturbance, psychotic disturbance, mood disturbance, and anxiety; J44.1 Chronic obstructive pulmonary disease with (acute) exacerbation; F25.9 Schizoaffective disorder, unspecified; J20.9 Acute bronchitis, unspecified; R73.9 Hyperglycemia, unspecified; E78.5 Hyperlipidemia, unspecified; F17.210 Nicotine dependence, cigarettes, uncomplicated; E78.00 Pure hypercholesterolemia, unspecified
CPT/HCPCS: 36415-UA; 71010-TC; 80048-TC; 80053-TC; 83605; 83880-TC; 84484-TC; 85007-TC; 85025-TC; 85027-TC; 90779; 93005; 94640; 94760; J1644; J1956; J2920; J7051; J7613; Z7610

== ENCOUNTER 2017-11-26 18:12 | Emergency (ER) | payer MEDICAID, MEDICARE ==
--- NOTE | 2017-11-26 18:28 | ED Physician Chart ---
ED Chief Complaint/HPI - Patient Information Date Seen:: 11/26/17 Time Seen:: 18:10 Chief Complaint:: Agitation History of Present Illness:: onset x 3 days of agitation and hostile behavior; no report of trauma, H/As, S/T , neck pain, C/P, SOB, Abd. Pain, A/N/V/D/C, fever, chills, or urinary s/s Allergies:: Allergies Allergy/AdvReac Type Severity Reaction Status Date / Time No Known Allergies Allergy Verified 11/01/16 14:10 Historian:: Patient, EMS Review:: Nurse's Note Reviewed, Old Chart Reviewed, EMS run form Reviewed <Zaki Lindsey - Last Filed: 11/26/17 18:51> - Patient Information Allergies:: Allergies Allergy/AdvReac Type Severity Reaction Status Date / Time No Known Allergies Allergy Verified 11/01/16 14:10 Vitals:: Vital Signs - 8 hr 11/26/17 11/26/17 18:24 18:38 Temp 97.3 F HR 76 71 RR 18 20 BP 125/81 115/73 O2 Sat % 98 97 <Cosmo Devlin - Last Filed: 11/26/17 19:42> ED Review of Systems - Review of Systems General/Constitutional: No fever, No chills, No weight loss, No weakness, No diaphoresis, No edema, No loss of appetite Skin: No skin lesions, No rash, No bruising Head: No headache, No light-headedness Eyes: No loss of vision, No pain, No diplopia ENT: No earache, No nasal drainage, No sore throat, No tinnitus Neck: No neck pain, No swelling, No thyromegaly, No stiffness, No mass noted Cardio Vascular: No chest pain, No palpitations, No PND, No orthopnea, No edema Pulmonary: No SOB, No cough, No sputum, No wheezing GI: No nausea, No vomiting, No diarrhea, No pain, No melena, No hematochezia, No constipation, No hematemesis G/U: No dysuria, No frequency, No hematuria, No nacturia Musculoskeletal: No bone or joint pain, No back pain, No muscle pain Endocrine: No polyuria, No polydipsia Psychiatric: Prior psych history, Depression, Anxiety, No suicidal ideation, No homicidal ideation, No auditory hallucination, No visual hallucination Hematopoietic: No bruising, No lymphadenopathy Allergic/Immuno: No urticaria, No angioedema Neurological: No syncope, No focal symptoms, No weakness, No paresthesia, No headache, No seizure, No dizziness, Confusion, No vertigo <Zaki Lindsey - Last Filed: 11/26/17 18:51> ED Past Medical History - Past Medical History Obtainable: Yes Past Medical History: HTN, Dyslipidemia Family History: HTN Social History: Non Smoker, No Alcohol, No Drug Use, Single, Care Facility Surgical History: None Psychiatricy History: Depression, Bipolar Medication: Reviewed <Zaki Lindsey Last Filed: 11/26/17 18:51> Family Medical History - Family Member Mother History Unknown: Yes Ethnicity: Unknown Living Status: Unknown Hx Family Cancer: (UNKNOWN) Hx Family Coronary Artery Disease: (UNKNOWN) Hx Family Congestive Heart Failure: (UNKNOWN) Hx Family Hypertension: (UNKNOWN) Hx Family Stroke: (UNKNOWN) Hx Family Diabetes: (UNKNOWN) Hx Family Seizures: (UNKNOWN) Hx Family Dementia: (UNKNOWN) Hx Family AIDS: (UNKNOWN) Hx Family COPD: (UNKNOWN) Hx Family Hepatitis: (UNKNOWN) Hx Family Psychiatric Problems: (UNKNOWN) Hx Family Tuberculosis: (UNKNOWN) Father History Unknown: Yes Ethnicity: Non- Living Status: Unknown Hx Family Cancer: (UNKNOWN PT CONFUSED) Hx Family Coronary Artery Disease: (UNKNOWN) Hx Family Congestive Heart Failure: (UNKNOWN) Hx Family Hypertension: (UNKNOWN) Hx Family Stroke: (UNKNOWN) Hx Family Diabetes: (UNKNOWN) Hx Family Seizures: (UNKNOWN) Hx Family Dementia: (UNKNOWN) Hx Family AIDS: (UNKNOWN) Hx Family COPD: (UNKNOWN) Hx Family Hepatitis: (UNKNOWN) Hx Family Psychiatric Problems: (UNKNOWN) Hx Family Tuberculosis: (UNKNOWN) <Zaki Lindsey - Last Filed: 11/26/17 18:51> ED Physical Exam - Physical Examination General/Constitutional: Awake, Well-developed, well-nourished, Alert, No distress, GCS 15, Non-toxic appearing, Ambulatory Head: Atraumatic Eyes: Lids, conjuctiva normal, PERRL, EOMI Skin: Nl inspection, No rash, No skin lesions, No ecchymosis, Well hydrated, No lymphadenopathy ENMT: External ears, nose nl, TM canals nl, Nasal exam nl, Lips, teeth, gums nl , Oropharynx nl, Tonsils nl Neck: Nontender, Full ROM w/o pain, No JVD, No nuchal rigidity, No bruit, No mass, No stridor Respiratory: Nl effort/Exclusion, Clear to Auscultation, No Wheeze/Rhonchi/Rales Cardio Vascular: RRR, No murmur, gallop, rubs, NL S1 S2, Carotid/Femoral/Distal pulses equal bilaterally GI: No tenderness/rebounding/guarding, No organomegaly, No hernia, Normal BS's, Nondistended, No mass/bruits, No McBurney tenderness : No CVA tenderness Extremities: No tenderness or effusion, Full ROM, normal strength in all extremities, No edema, Normal digits & nails Neuro/Psych: Alert/oriented, DTR's symmetric, Normal sensory exam, Normal motor strength, Judgement/insight normal, Mood normal, Normal gait, No focal deficits Misc: Normal back, No paraspinal tenderness <Zaki Lindsey - Last Filed: 11/26/17 18:51> ED Labs/Radiology/EKG Results - EKG Interpretations EKG Time:: 18:33 Rate & Rhythm: 71; NSR Comments:: LAD; non-specific st-t changes <Zaki Lindsey - Last Filed: 11/26/17 18:51> - Lab Results Results: Laboratory Tests 11/26/17 11/26/17 11/26/17 18:40 18:40 18:40 WBC 7.1 RBC 4.82 Hgb 15.7 Hct 46.0 MCV 95.5 MCH 32.6 H MCHC Differential 34.2 RDW 12.4 Plt Count 204 MPV 8.0 Neutrophils % 65.0 Lymphocytes % 26.6 Monocytes % 6.1 Eosinophils % 1.8 Basophils % 0.5 Sodium 138 Potassium 3.6 Chloride 104 Carbon Dioxide 28.6 Anion Gap 9.0 BUN 14 Creatinine 0.6 L Est GFR ( Amer) > 60.0 Est GFR (Non-Af Amer) > 60.0 BUN/Creatinine Ratio 23.3 Glucose 107 H Calcium 9.1 Total Bilirubin 0.3 AST 17 ALT 14 Alkaline Phosphatase 62 Troponin I < 0.01 L Total Protein 6.3 Albumin 3.9 L Globulin 2.4 Albumin/Globulin Ratio 1.6 Triglycerides 85 Cholesterol 124 LDL Cholesterol Direct 61 L HDL Cholesterol 53 Salicylates < 25.0 L Acetaminophen < 10.0 L Ethyl Alcohol < 10 - Radiology Results Results: Laboratory Results - last 24 hr 11/26/17 11/26/17 11/26/17 18:40 18:40 18:40 WBC 7.1 RBC 4.82 Hgb 15.7 Hct 46.0 MCV 95.5 MCH 32.6 H MCHC Differential 34.2 RDW 12.4 Plt Count 204 MPV 8.0 Neutrophils % 65.0 Lymphocytes % 26.6 Monocytes % 6.1 Eosinophils % 1.8 Basophils % 0.5 Sodium 138 Potassium 3.6 Chloride 104 Carbon Dioxide 28.6 Anion Gap 9.0 BUN 14 Creatinine 0.6 L Est GFR ( Amer) > 60.0 Est GFR (Non-Af Amer) > 60.0 BUN/Creatinine Ratio 23.3 Glucose 107 H Calcium 9.1 Total Bilirubin 0.3 AST 17 ALT 14 Alkaline Phosphatase 62 Troponin I < 0.01 L Total Protein 6.3 Albumin 3.9 L Globulin 2.4 Albumin/Globulin Ratio 1.6 Triglycerides 85 Cholesterol 124 LDL Cholesterol Direct 61 L HDL Cholesterol 53 Salicylates < 25.0 L Acetaminophen < 10.0 L Ethyl Alcohol < 10 <Cosmo Devlin - Last Filed: 11/26/17 19:42> ED Septic Shock - . Is Septic Shock (SBP<90, OR Lactate>4 mmol\L) present?: No <Zaki Lindsey - Last Filed: 11/26/17 18:51> - <6hrs of presentation: Vital Signs: Vital Signs - 8 hr 11/26/17 11/26/17 18:24 18:38 Temp 97.3 F HR 76 71 RR 18 20 BP 125/81 115/73 O2 Sat % 98 97 <Cosmo Devlin - Last Filed: 11/26/17 19:42> ED Reassessment (Disposition) - Reassessment Reassessment Condition:: Unchanged - Diagnosis Diagnosis:: Agitation; bipolar; psychosis - Patient Disposition Admitted to:: [facility] Admitting Medical Physician:: Milton Casanova Admitting Psych Physician:: Alissa Martinez Condition at Disposition:: Stable, Unchanged <Cook,Cosmo D. - Last Filed: 11/26/17 19:42> ED Discharge Plan <Zaki Lindsey - Last Filed: 11/26/17 18:51> <Cosmo Devlin - Last Filed: 11/26/17 19:42> - Patient Disposition Instructions: Psychosis
[2017-11-26 18:50] LABS: % BASOPHILS 0.5 % (0.0-2.0); % EOSINOPHILS 1.8 % (0.0-5.0); % LYMPHOCYTES 26.6 % (20.0-50.0); % MONOCYTES 6.1 % (2.0-10.0); EOSINOPHILE ABSOLUTE 0.1 Th/cmm (0.1-0.4); HEMOGLOBIN 15.7 gm/dL (12-16); LYMPHOCYTE ABSOLUTE 1.9 Th/cmm (1.5-3.0); MEAN CELL VOLUME 95.5 fl (80-99); MEAN CORPUSCULAR HEMOGLOBIN 32.6 pg (26.0-30.0); MEAN CORPUSCULAR HGB CONC 34.2 pg (28.0-36.0); MONOCYTE ABSOLUTE 0.4 Th/cmm (0.3-1.0); NEUTROPHILE ABSOLUTE 4.7 Th/cmm (1.8-8.0); PLATELET COUNT 204 Th/cmm (150-400); RED BLOOD COUNT 4.82 Mil/cmm (4.30-5.70); RED CELL DISTRIBUTION WIDTH 12.4 % (11.5-20.0); WHITE BLOOD COUNT 7.1 Th/cmm (4.8-10.8)
[2017-11-26 19:19] LABS: ACETAMINOPHEN < 10.0 ug/mL (10.0-30.0); ALB/GLOB RATIO 1.6 (1.0-1.8); ALBUMIN 3.9 gm/dL (4.2-5.5); ALKALINE PHOSPHATASE 62 U/L (34-104); BILIRUBIN,TOTAL 0.3 mg/dL (0.3-1.0); BUN - UREA NITROGEN 14 mg/dL (7-25); CALCIUM SERUM 9.1 mg/dL (8.6-10.3); CARBON DIOXIDE 28.6 mEq/L (21.0-31.0); CHLORIDE 104 mEq/L (98-107); CHOLESTEROL 124 mg/dL (<200); CREATININE - SERUM 0.6 mg/dL (0.7-1.3); GFR AFRICAN-AMERICAN > 60.0 ml/min (>90); GFR NON AFRICAN-AMERICAN > 60.0 ml/min; GLUCOSE 107 mg/dL (70-105); HDL -HIGH DENSITY LIPOPROTEIN 53 mg/dL (23-92); POTASSIUM SERUM 3.6 mEq/L (3.5-5.1); SGOT 17 U/L (13-39); SGPT/ALT 14 U/L (7-52); SODIUM SERUM 138 mEq/L (136-145); TOTAL PROTEIN,SERUM 6.3 gm/dL (6.0-8.3); TRIGLYCERIDES 85 mg/dL (<150)
[2017-11-26 19:22] LABS: SALICYLATES (ASPIRIN) < 25.0 mg/L (30.0-100.0)
[2017-11-26 21:05] LABS: URINE MICROSCOPIC INDICATED? YES; URINE SOURCE CLEAN C
[2017-11-26 21:10] LABS: URINE BILIRUBIN NEGATIVE (NEGATIVE); URINE BLOOD NEGATIVE (NEGATIVE); URINE GLUCOSE (UA) NEGATIVE (NEGATIVE); URINE KETONE NEGATIVE (NEGATIVE); URINE LEUKOCYTE ESTERASE NEGATIVE (NEGATIVE); URINE NITRATE NEGATIVE (NEGATIVE); URINE PH 6.5 (4.6 - 8.0); URINE PROTEIN NEGATIVE (NEGATIVE); URINE UROBILINOGEN 0.2 E.U./dL (0.2 - 1.0)
[2017-11-26 21:12] LABS: URINE CLARITY CLEAR (CLEAR); URINE COLOR YELLOW
[2017-11-26 21:23] LABS: URINE BACTERIA NONE SEEN /hpf (NONE SEEN); URINE EPITHELIAL CELLS NONE SEEN /lpf (FEW); URINE RBC NONE SEEN /hpf (0-5); URINE WBC NONE SEEN /hpf (0-5)
[2017-11-26 21:26] LABS: AMPHETAMINE URINE NEGATIVE (NEGATIVE); BARBITURATES URINE NEGATIVE (NEGATIVE); BENZODIAZEPINES QUAL URINE NEGATIVE (NEGATIVE); CANNABINOID THC NEGATIVE (NEGATIVE); COCAINE METABOLITE QUAL URINE NEGATIVE (NEGATIVE); METHADONE URINE NEGATIVE (NEGATIVE); METHAMPHETAMINES QUAL URINE NEGATIVE (NEGATIVE); OPIATES (MORPHINE) QUAL. URINE NEGATIVE (NEGATIVE); PHENCYCLIDINE (PCP) URINE NEGATIVE (NEGATIVE); TRICYCLICS (TCA) QUAL. URINE NEGATIVE (NEGATIVE)
== END 2017-11-26 22:45 ==
LOC: ER 18:12
DX: F31.9 Bipolar disorder, unspecified (principal); F29 Unspecified psychosis not due to a substance or known physiological condition; I10 Essential (primary) hypertension; E78.5 Hyperlipidemia, unspecified
CPT/HCPCS: 36415-UA; 80053-TC; 80061-TC; 80307; 80320-TC; 80329-TC; 81001-TC; 83036-90; 84443-TC; 84484-TC; 85025-TC; 86592-TC; 93005